=== PATIENT | male | born 1965 | race Caucasian/White ===

== ENCOUNTER 2018-02-21 00:26 | Day surgery (SDC) | payer OTHER ==
[~2018-02-21] VITALS: Ht 177.8 cm; Wt 85.7 kg
[~2018-02-21 00:26] MED LIST: ALB6.7R INH
[2018-02-21] MEDS ORDERED: PROPOFOL EMUL(*) 10MG/ML 20 ML 40 ML ONE (07:13)
[2018-02-21] MEDS ORDERED: LIDOCAINE/SOD BICARB 8.4% SYR ID ONE (12:05)
[2018-02-21] MEDS ORDERED: NORMOSOL R SOLN(*) 1000 ML BAG 1,000 ML IV PRN (12:05)
[2018-02-21 12:26] VITALS: BP 139/90
[2018-02-21 13:14] VITALS: BP 103/64
[2018-02-21 13:39] VITALS: BP 111/76
[2018-02-21 13:42] VITALS: BP 107/84
[2018-02-21 13:43] VITALS: BP 120/81
== END 2018-02-21 13:50 | disposition home or self-care (01) ==
LOC: OR 00:26
PROVIDERS: ATTEND Family Medicine
DX: Z12.11 Encounter for screening for malignant neoplasm of colon (principal)
CPT/HCPCS: 00812; 45378; J2704